=== PATIENT | female | born 1980 | race Caucasian/White ===

== ENCOUNTER 2018-08-09 15:17 | Inpatient (IN) | payer BC ==
[~2018-08-09] VITALS: Ht 165.1 cm; Wt 81.6 kg
[2018-08-13] MEDS ORDERED: METOCLOPRAMIDE 10 MG/2 ML SDV IVP PRN (22:30)
[2018-08-13] MEDS ORDERED: FAMOTIDINE(*) 20MG/50ML PREMIX 50 ML IVPB PRN (22:30)
[2018-08-13] MEDS ORDERED: fentaNYL CITR 100 MCG/2 ML AMP IVP PRN (22:30)
[2018-08-13] MEDS ORDERED: LIDOCAINE/SOD BICARB 8.4% SYR SC PRN (22:30)
[2018-08-13] MEDS ORDERED: LIDOCAINE 1% LOCAL 300 MG/30ML INJ PRN (22:30)
[2018-08-13] MEDS ORDERED: cefOXitin/DEX(*) 2GM/50ML PREM 50 ML IVPB PRN (22:30)
[2018-08-13 23:00] VITALS: BP 142/91; Ht 165.1 cm; Wt 81.6 kg
[2018-08-13 23:09] LABS: PLATELET COUNT, AUTOMATED 273 K/uL (150-450)
[2018-08-13] MEDS ORDERED: LIDOCAINE/PF 2% 200MG/10ML AMP 200 MG/10 ML AMPUL EPI PRN (23:40)
[2018-08-13] MEDS ORDERED: EPIDURAL KEYS XX PRN (23:40)
[2018-08-13] MEDS ORDERED: BUPIVACAINE 0.25% MPF INJ EPI PRN (23:40)
[2018-08-13] MEDS ORDERED: FENTANYL/ROPIVACAINE 100 ML BAG EPI PRN (23:40)
[2018-08-13] MEDS ORDERED: ONDANSETRON 4 MG/2 ML VIAL IVP PRN (23:40)
[2018-08-13] MEDS ORDERED: fentaNYL CITR 100 MCG/2 ML AMP IT PRN (23:40)
[2018-08-13] MEDS ORDERED: BUPIVACAINE 0.5% INJ 30ML VIAL EPI PRN (23:40)
[2018-08-13] MEDS ORDERED: LIDO/EPI 2% MPF 1:200,000 20ML EPI PRN (23:40)
[2018-08-13] MEDS ORDERED: CALCIUM CARBONATE 500 MG CHEW PO PRN (23:45)
[2018-08-13] MEDS ORDERED: DOCO100C2 PO (23:45)
[2018-08-13] MEDS ORDERED: PREN-127 PO (23:45)
[2018-08-13] MEDS ORDERED: FAMO20TA28 PO (23:45)
[2018-08-13] MEDS ORDERED: ACETAMINOPHEN 500 MG TAB PO PRN (23:45)
[2018-08-14] VITALS (17 sets, daily range): BP systolic 121–143; BP diastolic 70–97
[2018-08-14] MEDS: LR(*) 1000 ML BAG 1,000 ML IV SCH ×4 (00:32→09:30)
[2018-08-14] MEDS: OXYTOCIN 30 UNIT/D5LR 500 ML 500 ML IV PRN (07:12)
--- NOTE | 2018-08-14 07:26 | History & Physical ---
History of Present Illness Age of Patient: 38 : 1 Para or TPAL: 0 EDC per LMP: Aug 16, 2018 Estimated Gestational Age: 39.5 Chief Complaint labor History of Present Illness Presents for labor symptoms, contractions all day and from night before. This worsened gradually as day progressed while pt at work. has been unc omplicated to date. Mother is AMA and materni-21 was negative and male. Pt is healthy and no issues. Presents at 5 cm. As night has progressed, has changed to 9 cm by approximately 5 am. Epidural was placed at about 130. Reactive changes noted with this baby through the night. A light prolonged deceleration noted at epidural placement. Episodes of late decelerations that was positional and resolve with reposition or fluid bolus. Currently early decelerations noted and IUPC placed. History Patient's Blood Type: A Positive Rubella Status: Immune Group B Strep Screen: Negative Allergies: Coded Allergies: No Known Drug Allergies (Unverified , 08/13/18) Med Rec Home Meds Reported Medications Docosahexanoic Acid (DHA) 100 Mg Capsule, 100 MG PO, CAPSULE 08/13/18 Vits W-Ca,Fe,Fa(<1MG) ( VITAMINS) 1 Each Tablet, 1 EACH PO DAILY, TAB 08/13/18 Famotidine (PEPCID) 20 Mg Tablet, 20 MG PO QDAY, #10 TAB 08/13/18 Review of Systems All Systems Reviewed/Normal: Yes, Except as Noted Exam General Exam Vital Signs Vital Signs Date Time Temp Pulse Resp B/P (MAP) Pulse Ox O2 Delivery O2 Flow Rate FiO2 08/13/18 23:00 97.8 78 18 142/91 (108) 96 Room Air General Apperance: Alert/Awake/No Acute Distress Neuro: No Gross deficits Cardiovascular: Regular Rate and Rhythm Respiratory: No Respiratory Distress Abdomen: Soft, Non-Tender, Non-Distended, Gravid - Non-Tender Extremities: No Cyanosis,Clubbing or Edema Integumentary: Skin Intact without Lesions or Rash Psychological: Alert & Oriented X3, Appropriate Mood & Affect Vaginal Discharge/Fluid?: Green Tinged Fluid, Large Amount Cervical Dialation: 9 Cervical Effacement (%): 100 Cervical Consistency: Soft Cervical Position: Anterior Station: +1 Presentation: Vertex Uterine Contractions(Q min): 4 Uterine Contraction Strength: Moderate Fetus Heart Tone Variabilty: Moderate FHT Accelerations: 10X10 FHT Decelerations: Early FHT Category: I Medical Decision Making Data Points Result Diagram: 08/13/18 2779 VTE Prophylasis: Adult Deep Vein Thrombosis/Pulmonary: No Pharmacological Contraindicati: Pt at Low Risk for VTE Mechanical Contraindications: Pt at Low Risk for VTE Assessment and Plan Problems: (1) Thin meconium stained amniotic fluid Assessment & Plan: Parents informed of meconium stained fluid and potential implications. IUPC placed to assist with augmenting labor contractions. Currently early decelerations noted and will have to see how progresses with Pitocin augmentation. Expecting still. (2) 39 weeks gestation of (3) Normal labor RAFAT BRUNER MD Aug 14, 2018 07:26
[2018-08-14] MEDS ORDERED: NS(*) 0.9% 500 ML BAG 500 ML ONE (15:01)
[2018-08-14] MEDS ORDERED: OXYTOCIN 10 UNIT/ML SDV ONE (15:30)
[2018-08-14] MEDS ORDERED: ONDANSETRON 4 MG/2 ML VIAL ONE (15:30)
[2018-08-14] MEDS ORDERED: KETOROLAC 30 MG/ML VIAL ONE (15:31)
[2018-08-14] MEDS ORDERED: EPINEPHrine HCL 1 MG/ML AMP ONE (15:31)
[2018-08-14] MEDS ORDERED: LR(*) 1000 ML BAG 1,000 ML IV SCH (15:33)
[2018-08-14] MEDS ORDERED: FAMOTIDINE 20 MG/50 ML PREMIX IVPB ONE (15:35)
[2018-08-14] MEDS ORDERED: CITRIC ACID/SOD CITRATE 30 ML PO ONE (15:35)
[2018-08-14] MEDS ORDERED: cefOXitin/DEX(*) 2GM/50ML PREM 50 ML IVPB ONE (15:35)
[2018-08-14] MEDS ORDERED: OXYTOCIN 30 UNIT/D5LR 500 ML 500 ML IV PRN (15:43)
--- NOTE | 2018-08-14 15:43 | Labor Progress Note ---
Labor Subjective Progress Notes Subjective Has been in a labor dystocia for some time. Progressed regularly to 9 cm/0 station and then stalled. She has had interventions including IUPC monitoring and Pitocin augmentation to adequate MVUs without resolution. Suspecting ROP on exam. Vaginal Discharge/Fluid: Bloody Show Labor Objective Vital Signs Vital Signs Date Time Temp Pulse Resp B/P (MAP) Pulse Ox O2 Delivery O2 Flow Rate FiO2 08/14/18 12:10 100.2 08/13/18 23:00 78 18 142/91 (108) 96 Room Air Vaginal Discharge/Fluid?: Green Tinged Fluid Cervical Dialation: 9 Cervical Effacement (%): 100 Station: 0 Presentation: Vertex Fetus Heart Tone Variabilty: Moderate FHT Accelerations: 15X15 FHT Decelerations: Variable FHT Category: I Other Result Diagram: 08/13/18 4714 Assessment and Plan Problems: (1) Thin meconium stained amniotic fluid Assessment & Plan: will have PEDs present for delivery (2) 39 weeks gestation of (3) Normal labor (4) Arrest of descent, delivered, current hospitalization (5) Failure to progress in labor Assessment & Plan: Reviewed the situation and in fact, reviewed this at 1300 today. It appears we are at an unresolvable situation with arrest of descent and dilation, stuck at 9cm. It feels like it may be ROP. Reviewed R/B/A to and consent obtained. RAFAT BRUNER MD Aug 14, 2018 15:43
[2018-08-14] MEDS ORDERED: LANOLIN OINT 7 GM TUBE TP PRN (15:45)
[2018-08-14] MEDS ORDERED: ONDANSETRON 4 MG/2 ML VIAL IV PRN (15:45)
[2018-08-14] MEDS ORDERED: ZOLPIDEM TARTRATE 5 MG TAB PO PRN (15:45)
[2018-08-14] MEDS ORDERED: PROMETHAZINE 25 MG/ML 1 ML AMP IVP PRN (15:45)
[2018-08-14] MEDS ORDERED: SIMETHICONE 80 MG CHEW CHEW PRN (15:45)
[2018-08-14] MEDS ORDERED: LIDOCAINE 1%MDV(*)200 MG/20 ML 1 ML ONE (16:01)
[2018-08-14] MEDS ORDERED: BUPIVACAINE 0.5% INJ 30ML VIAL ONE (16:23)
[2018-08-14] MEDS ORDERED: MORPHINE PF 5 MG/10 ML AMP ONE (16:27)
[2018-08-14] MEDS ORDERED: fentaNYL CITR 100 MCG/2 ML AMP ONE (16:43)
--- NOTE | 2018-08-14 17:24 | Post Operative Note ---
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
[2018-08-14] MEDS: DOCUSATE CALCIUM 240 MG CAP PO SCH (20:33)
[2018-08-14] MEDS: FAMOTIDINE 20 MG TAB PO SCH (20:33)
[2018-08-14] MEDS: DLR(*) 1000 ML BAG 1,000 ML IV PRN (21:17)
[2018-08-14] MEDS: KETOROLAC 30 MG/ML VIAL IVP SCH (21:20)
[2018-08-14] MEDS ORDERED: BENZOCAINE 20% 60 ML BTL TP PRN (23:15)
[2018-08-14] MEDS ORDERED: GLYCERIN/WITCH HAZEL LEAF 1 PK TP PRN (23:15)
[2018-08-15] VITALS (8 sets, daily range): BP systolic 108–130; BP diastolic 65–80
[2018-08-15] MEDS: DLR(*) 1000 ML BAG 1,000 ML IV PRN (03:16)
[2018-08-15] MEDS: KETOROLAC 30 MG/ML VIAL IVP SCH ×2 (03:19→10:12)
--- NOTE | 2018-08-15 06:11 | Anesthesia OB Pre-Anes Eval ---
History of Present Illness Anesthesia Start Date: Aug 14, 2018 Anesthesia Start Time: 00:43 OB Anesthesia Diagnosis: spontaneous labor EDC: Aug 16, 2018 : 1 Para: 0 Pain Ratin Result Diagram: 08/13/18 2304 Height (Inches): 65.00 Weight (Pounds): 180 BMI Calculated: 29.95 Past Medical History Medical History: no pertinent history Surgical History: noncontributory Previous Anesthesia: general Attended Childbirth Classes?: Yes, Attended [employer] Lecture (yes) Hx Anesthesia Reactions: No Hx Family Anesthesia Reaction: No Home Meds Reported Medications Docosahexanoic Acid (DHA) 100 Mg Capsule, 100 MG PO, CAPSULE 08/13/18 Vits W-Ca,Fe,Fa(<1MG) ( VITAMINS) 1 Each Tablet, 1 EACH PO DAILY, TAB 08/13/18 Famotidine (PEPCID) 20 Mg Tablet, 20 MG PO QDAY, #10 TAB 08/13/18 Allergies: Coded Allergies: No Known Drug Allergies (Unverified , 08/13/18) Anesthesia OB ROS Airway Class: l GI ROS: clear liquids, ice chips Last Solids Date: Aug 13, 2018 Last Solids Time: 20:30 Musculoskeletal ROS: low back pain, low back injury ASA Classification: 2 Assessment and Plan Anesthesia Plan: CSE Anesthesia Stop Day: Aug 14, 2018 Anesthesia Stop Time: 17:33 Epidural Catheter Removal: Removed Catheter Intact (In OR following C- Section.), Yes, Removed by: (Lambert Arauz CRNA) Removal Date: Aug 14, 2018 Removal Time: 17:25 TITA ARAUZ CRNA Aug 14, 2018 01:52
--- NOTE | 2018-08-15 06:13 | Procedure Note ---
Anesthetic Placement Note Anesthesia Plan: CSE Permit for Anesthesia Signed: Yes Anesthesia Technique: Patient Sitting Anesthesia Prep: Betadine Interspace: L 3-4 Local Anesthetic: 1% Lidocaine, 25 Gauge Needle Amount Local - cc's: 3 Anesthesia Needle: 17g Touhy/Schliff Anesthesia Attempts: 2 (First attempt L4-5 unsuccessful.) Loss of Resistance: Normal Saline Depth of ALESSANDRA (cm): 5 Intrathecal Needle: 27 Gauge Pencan Cerebral Spinal Fluid: Yes, Clear Catheter Insertion (cm): 6 Catheter Type: Shaw - Spring Wound Epidural Dressing: Tegaderm, Tape, Adhesive [place] Anesthesia Tray: Lot Number ([id number]), Expiration Date (2019-08-13), Reference Number ([id number]) Comment: 1545 LEB converted to surgical epidural for (Failure to progress). See chart. Anesthesia Medications: Intrathecal Dose: mcg Fentanyl (25), mg Marcaine MPF (2.5), Time (0102) Epidural Test Dose: 1.5 Lido/Epi (1:200,000), Dose - mL (3), Time (0105), Neg ative (No symptoms IT or IV injection.) Epidural Loading Dose: 0.2% Ropivicaine, With Fentanyl 2mcg/ml, Dose - ml (10), Time (0113) Epidural Infusion: 0.2% Ropivicaine, With Fentanyl 2mcg/ml, Start Time: (0125) Epidural Pump Setting: Bolus Dose - mL (4), Lockout - Minutes (15), Maintenance Rate - mL/hr (10), Maximum per Hour - mL (26) Complications: None Comment: Good analgesia with IT medication, minimal motor block, R=L. Will assess epidural effectiveness when spinal dissipates. TITA ARAUZ CRNA Aug 14, 2018 02:01
[2018-08-15 06:31] LABS: PLATELET COUNT, AUTOMATED 190 K/uL (150-450)
--- NOTE | 2018-08-15 08:12 | KLINGLER C-SECTION ---
EVENT DATE: August 14, 2018 SURGEON: Nakul Melissa MD ANESTHESIOLOGIST: [*] ANESTHESIA: Epidural. PREOPERATIVE DIAGNOSES 1. Term intrauterine at 39 weeks. 2. Arrest of dilation and descent. 3. Failure to progress into labor. POSTOPERATIVE DIAGNOSES 1. Term intrauterine at 39 weeks. 2. Arrest of dilation and descent. 3. Failure to progress into labor. 4. Cephalopelvic disproportion with asynclitic presentation. PROCEDURES PERFORMED Primary low transverse section via Pfannenstiel skin incision. ESTIMATED BLOOD LOSS 1000 mL. FINDINGS Male , cephalic. Oblique presentation with an occiput anterior but asynclitic towards the right side. Normal appearing tubes and ovaries. Narrow pelvis. The 's face had significant compressive affect with flattened nose secondary to the compression in the pelvis. PROCEDURE IN DETAIL The patient was brought to the operating room with a working IV and an epidural in place. She was placed in the dorsal supine position on the operating table with a leftward tilt and prepped and draped in the usual sterile fashion. Using a knife, a Pfannenstiel skin incision was made and carried through to the underlying rectus fascia. This was nicked in the midline and extended laterally. The rectus fascia was dissected off the underlying rectus muscles using sharp dissection and the rectus muscles were in the midline. The peritoneum was entered sharpy and extended superiorly and inferiorly, taking care to avoid injury to the underlying bladder. The bladder blade was inserted. The vesicouterine peritoneum was tented and entered sharply and extended laterally. Bladder flap was created digitally. The bladder blade was reinserted here, exposing the lower uterine segment of the uterus. A low transverse incision was made with the scalpel and carried through to the intraamniotic space. It was extended with blunt lateral traction and was inserted. The 's head was found at an oblique angle, occiput anterior and asynclitic towards the right side. It was elevated to the incision. Fundal pressure was applied and the 's head delivered atraumatically. The face and nose were immediately noted to be smashed and compressed due to compression of the pelvis. There was significant caput formed on the 's head towards the occiput but right lateral onto the parietal bone, accounting for the arrest of descent and dilation to 9 cm. Mouth and nose were bulb suctioned and the remainder of the infant delivered without difficulty. The was vigorously stimulated and a good cry, tone and movement was noted. The cord was clamped and cut and the infant was passed to the awaiting resuscitation team. A cord sample was obtained. The placenta was delivered manually. The uterus was exteriorized and cleared of clots and debris. The uterus was then repaired with #1 Monocryl in a running locking stitch and imbricated with the same stitch for two-layer closure. There was excellent hemostasis upon completion. The uterus had firmed up after infusion of Pitocin IV and uterine massage. The uterus was returned to the abdomen and bilateral pelvic gutters were irrigated, swept clear of clots and debris. The parietal peritoneum was then sutured using 3-0 Vicryl in a running nonlocking stitch. Rectus muscles were reapproximated in the midline with the same stitch. A few capillary bleeders were cauterized while the rectus fascia was repaired using an 0 Vicryl in a running nonlocking stitch. Subcuticular space was irrigated and swept clean of clots and debris and cautery was applied for hemostasis. The space was closed with a 3-0 Vicryl Plus in a running nonlocking stitch and skin incision was repaired with 4-0 Monocryl simple subdermal and covered with Dermabond skin adhesive. She tolerated the procedure well. Sponge, lap, needle and instrument counts were correct x3. She was taken to recovery in stable condition. JACOB
--- NOTE | 2018-08-15 08:27 | Anesthesia Post Eval Note ---
Anesthesia Post Eval Note Stabil, afebrile. Pt able to participate in Eval: Yes Cardiovascular Status: Satisfactory Respiratory Status: Satisfactory Pain Managment: Satisfactory PO Nausea/Vomiting: Satisfactory Temperature Management: Satisfactory Mental Status: Satisfactory, Alert, Oriented X3 Post-Op Hydration Status: Satisfactory, Tolerating PO Well Anesthesia Type: CSE Anesthesia Tolerance: S/P CSE for labor. Pt eventually had to have failure to progress . LEB converted to surgical epidural which was supplemented with local anesthesia administered by surgeon before incision. She developed discomfort in surgical area during case, epidural was further dosed and discomfort eventually improved. She denies nausea or itching, received Duramorph via epidural at end of case before catheter was removed. Pain control is adequate. She is able to sit up in bed and stand at bedside without symptoms of PDPH. TITA ARAUZ DRUG ABUSE COUNSELOR Aug 15, 2018 08:27
--- NOTE | 2018-08-15 08:54 | OB/GYN Progress Note ---
OB Subjective Progress Notes Subjective Pain tolerated well. Little bleeding. Has been up at bedside well. Good UO GI: NEG Nausea : Voiding Well Pain: Mild OB Objective Physical Exam Vital Signs Date Time Temp Pulse Resp B/P (MAP) Pulse Ox O2 Delivery O2 Flow Rate FiO2 08/15/18 05:00 78 15 96 Nasal Cannula 1.0 08/15/18 02:05 119/73 (88) 08/15/18 02:05 98.4 Intake and Output 08/15/18 07:00 Intake Total 9220 ml Output Total 7150 ml Balance 2070 ml Intake Oral 670 ml IV Total 6250 ml Other 2300 ml Output Urine Total 6150 ml Estimated Blood Loss 1000 ml General Appearance: Alert/Awake/No Acute Distress Neurological: No Gross deficits Cardiovascular: Normal Rhythm & Peripheral Pulses Respiratory: No Respiratory Distress Abdomen: Soft, Non-Tender, Non-Distended, Fundus Firm, Non-Tender Incision: Clean, Dry, Intact, Dermabond Extremities: No Cyanosis,Clubbing or Edema Integumentary: Skin Intact without Lesions or Rash Psychological: Alert & Oriented X3, Appropriate Mood & Affect Result Diagram: 08/15/18 0550 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
[2018-08-15] MEDS ORDERED: INFLUENZA VIRUS VAC 0.5ML SYR IM ONLY ONE (09:00)
[2018-08-15] MEDS ORDERED: DIPHTH/TETANUS/ACEL. PERTUSSIS IM ONLY ONE (09:00)
[2018-08-15] MEDS ORDERED: MEASLES,MUMP,RUBELLA VAC 0.5ML SUBQ ONE (09:00)
[2018-08-15] MEDS: DOCUSATE CALCIUM 240 MG CAP PO SCH ×2 (09:44→21:04)
[2018-08-15] MEDS: FAMOTIDINE 20 MG TAB PO SCH ×2 (09:44→21:04)
[2018-08-15] MEDS: IBUPROFEN 800 MG TAB PO SCH (17:42)
[2018-08-16] MEDS: IBUPROFEN 800 MG TAB PO SCH ×3 (01:55→18:43)
[2018-08-16 03:10] VITALS: BP 128/76
[2018-08-16 07:45] VITALS: BP 134/91
[2018-08-16] MEDS: DOCUSATE CALCIUM 240 MG CAP PO SCH ×2 (09:27→20:22)
[2018-08-16] MEDS: FAMOTIDINE 20 MG TAB PO SCH ×2 (09:27→20:22)
--- NOTE | 2018-08-16 11:14 | OB/GYN Progress Note ---
OB Subjective Progress Notes Subjective Doing well. Pain controlled and ambulating well. Voiding without difficulty. Baby having some issues with bili and question of whether it has a genetic issue. Pt worried about that. GI: NEG Nausea : Voiding Well Pain: Mild OB Objective Physical Exam Vital Signs Date Time Temp Pulse Resp B/P (MAP) Pulse Ox O2 Delivery O2 Flow Rate FiO2 08/16/18 03:10 98.5 77 16 128/76 (93) 93 Room Air 08/15/18 08:00 1.0 Intake and Output 08/16/18 07:00 Intake Total 2410 ml Output Total 4500 ml Balance -2090 ml Intake Oral 1660 ml IV Total 750 ml Output Urine Total 4500 ml # Voids 1 General Appearance: Alert/Awake/No Acute Distress Neurological: No Gross deficits Cardiovascular: Normal Rhythm & Peripheral Pulses Respiratory: No Respiratory Distress Abdomen: Soft, Non-Tender, Non-Distended, Fundus Firm, Non-Tender Incision: Clean, Dry, Intact, Dermabond Extremities: No Cyanosis,Clubbing or Edema Integumentary: Skin Intact without Lesions or Rash Psychological: Alert & Oriented X3, Appropriate Mood & Affect Result Diagram: 08/15/18 0550 Assessment and Plan Problems: (1) Thin meconium stained amniotic fluid (2) 39 weeks gestation of (3) Normal labor (4) Arrest of descent, delivered, current hospitalization (5) Failure to progress in labor (6) Other specified aftercare following surgery Assessment & Plan: routine care today. Expecting discharge tomorrow either to room in or to home depending on baby. (7) care and examination immediately after delivery RAFAT BRUNER MD Aug 16, 2018 11:14
[2018-08-16 11:15] VITALS: BP 127/84
[2018-08-16 16:43] VITALS: BP 129/70
[2018-08-16 19:30] VITALS: BP 138/80
[2018-08-16 23:30] VITALS: BP 141/97
[2018-08-17] MEDS: IBUPROFEN 800 MG TAB PO SCH ×2 (01:38→10:14)
[2018-08-17 03:35] VITALS: BP 114/71
[2018-08-17 07:35] VITALS: BP 151/86
[2018-08-17] MEDS: DOCUSATE CALCIUM 240 MG CAP PO SCH (08:38)
[2018-08-17] MEDS: FAMOTIDINE 20 MG TAB PO SCH (08:38)
[2018-08-17] MEDS: ACETAMINOPHEN 325 MG TAB PO PRN ×2 (08:38→12:18)
[2018-08-17 09:29] LABS: PLATELET COUNT, AUTOMATED 287 K/uL (150-450)
[2018-08-17 12:12] VITALS: BP 144/87
[2018-08-17] MEDS ORDERED: OXYC-865 PO (12:27)
[2018-08-17] MEDS ORDERED: IBUP800T37 PO (12:27)
--- NOTE | 2018-08-17 12:31 | OB/GYN Discharge Summary ---
Discharge Summary Reason for Hosp/Final Diag: (1) Thin meconium stained amniotic fluid (2) 39 weeks gestation of (3) Normal labor (4) Arrest of descent, delivered, current hospitalization (5) Failure to progress in labor (6) Other specified aftercare following surgery (7) care and examination immediately after delivery [place] Vital Signs Vital Signs Date Time Temp Pulse Resp B/P (MAP) Pulse Ox O2 Delivery O2 Flow Rate FiO2 08/17/18 12:12 98.3 71 18 144/87 (106) 95 Room Air 08/15/18 08:00 1.0 Weight (Pounds): 180 Result Diagram: 08/17/1892208/17/18922 Condition: Improved Discharge: Home, Self Retirement Meds Active Scripts Oxycodone Hcl/Acetaminophen (PERCOCET 5-325 MG TABLET) 1 Each Tablet, 1 EACH PO Q4-6H PRN for PAIN, #20 TAB 0 Refills TAKE 1 TABLET NEEDED FOR PAIN - NO CLOSER THAN EVERY 4-6 HOURS. Prov:MAGI MCCLELLAND 08/17/18 Ibuprofen (IBUPROFEN) 800 Mg Tablet, 1 TAB PO Q8H, #30 TAB 0 Refills Take with food every 8 hours. Prov:MAGI MCCLELLAND 08/17/18 Reported Medications Docosahexanoic Acid (DHA) 100 Mg Capsule, 100 MG PO, CAPSULE 08/13/18 Vits W-Ca,Fe,Fa(<1MG) ( VITAMINS) 1 Each Tablet, 1 EACH PO DAILY, TAB 08/13/18 Famotidine (PEPCID) 20 Mg Tablet, 20 MG PO QDAY, #10 TAB 08/13/18 [facility] [phone], Dr. Melissa [phone] Follow up in: 2 wks PO Discharge Diet: As Tolerates Discharge Activity: As Tolerates, Pelvic Rest Special Instructions: No driving on narcotic pain medication. F/u for blood pressure check early next week. MAGI MCCLELLAND Aug 17, 2018 12:31
--- NOTE | 2018-08-17 12:37 | OB/GYN Progress Note ---
OB Subjective Progress Notes Subjective 38 yo female post day #3 s/p . Increased BP this morning, mild headache and some edema in the legs and feet, labs done and within range. Tolerating PO, ambulating well, voiding well. Scant vaginal bleeding. GI: POS Flatus; NEG Nausea, NEG Vomiting : Voiding Well, Vaginal Bleeding, Scant Pain: Moderate, Tolerating PO Pain Meds Neurological: Headache (mild) OB Objective Physical Exam Vital Signs Date Time Temp Pulse Resp B/P (MAP) Pulse Ox O2 Delivery O2 Flow Rate FiO2 08/17/18 12:12 98.3 71 18 144/87 (106) 95 Room Air 08/15/18 08:00 1.0 Intake and Output 08/17/18 06:59 Intake Total 2130 ml Balance 2130 ml Intake Oral 2130 ml # Voids 2 General Appearance: Alert/Awake/No Acute Distress Neurological: No Gross deficits Cardiovascular: Normal Rhythm & Peripheral Pulses Respiratory: No Respiratory Distress, Clear to Auscultation Abdomen: Fundus Firm, Non-Tender Incision: Clean, Dry, Intact, Dermabond Extremities: Edema (1+ edema of bilat lower legs); No No Cyanosis,Clubbing or Edema Integumentary: Skin Intact without Lesions or Rash Psychological: Alert & Oriented X3, Appropriate Mood & Affect Result Diagram: 08/17/1892208/17/18922 Assessment and Plan 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 Follow-up for incision check in 2 weeks.. (7) care and examination immediately after delivery MAGI MCCLELLAND Aug 17, 2018 12:37
== END 2018-08-17 15:20 | disposition home or self-care (01) | DRG 788 ==
LOC: OB 15:17 → UNDOADMIN 15:17 → OB 08-13 22:29
PROVIDERS: ADMIT Obstetrics & Gynecology; ATTEND Obstetrics & Gynecology
PROC: 10H07YZ Insertion of Other Device into Products of Conception, Via Natural or Artificial Opening (ICD-10-PCS; 2018-08-14)
PROC: 4A1H74Z Monitoring of Products of Conception, Cardiac Electrical Activity, Via Natural or Artificial Opening (ICD-10-PCS; 2018-08-14)
PROC: 10D00Z1 Extraction of Products of Conception, Low, Open Approach (ICD-10-PCS; principal; 2018-08-14 16:06)
DX: O64.0XX0 Obstructed labor due to incomplete rotation of fetal head, not applicable or unspecified (principal); O65.8 Obstructed labor due to other maternal pelvic abnormalities; O62.1 Secondary uterine inertia; O77.0 Labor and delivery complicated by meconium in amniotic fluid; O76 Abnormality in fetal heart rate and rhythm complicating labor and delivery; Z3A.39 39 weeks gestation of pregnancy; Z37.0 Single live birth
CPT/HCPCS: 36415; 81001; 82040; 82247; 82310; 82374; 82435; 82565; 82947; 83615; 84075; 84132; 84155; 84295; 84450; 84460; 84520; 84550; 85014; 85018; 85025; 86703; 86850; 86900; 86901; J0171; J1885; J2001; J2270; J2405; J2590; J2765; J3010; J3490; J7120; S0020

== ENCOUNTER 2019-03-19 15:08 | Observation (INO) | payer BC ==
[~2019-03-19] VITALS: Ht 165.1 cm; Wt 72.6 kg
[~2019-03-19 15:08] MED LIST: DOCO100C2 PO; FAMO20TA28 PO; IBUP800T37 PO; OXYC-865 PO; PREN-127 PO
[2019-03-19] MEDS ORDERED: NS(*) 0.9% 1000 ML BAG 1,000 ML IV ONE (15:24)
[2019-03-19] MEDS ORDERED: ONDANSETRON 4 MG/2 ML VIAL IVP ONE (15:25)
[2019-03-19 15:38] LABS: PLATELET COUNT, AUTOMATED 411 K/uL (150-450)
[2019-03-19] MEDS ORDERED: NS(*) 0.9% 1000 ML BAG 1,000 ML ONE (16:31)
[2019-03-19] MEDS ORDERED: ONDANSETRON 4 MG/2 ML VIAL ONE ×2 (16:31→19:59)
--- NOTE | 2019-03-19 16:32 | RADIOLOGY IMAGING REPORT ---
FACILITY: [facility] - [place] PATIENT NAME: Kassy Silveira : 1980 MR: [id number] V: [id number] EXAM DATE: ORDERING PHYSICIAN: NEVILLE KOENIG TECHNOLOGIST: Location: [facility] [place] Patient: Kassy Silveira : 1980 Visit/Account:[id number] Date of Sevice: 03/19/2019 EXAMINATION: CT abdomen and pelvis with contrast COMPARISON: None. HISTORY: abdominal pain PROCEDURE: Multiplanar contrast enhanced CT of the abdomen and pelvis with 75 mL intravenous Isovue 3 70. One of the following dose optimization techniques was utilized in the performance of this exam: A utomated exposure control; adjustment of the mA and/or kV according to the patient's size; or use of an iterative reconstruction technique. Specific details can be referenced in the facility's radiolo gy CT exam operational policy. FINDINGS: Visualized thorax: Negative. Liver: Negative. Gallbladder and biliary system: Negative Spleen: Negative. Pancreas: Negative. Adrenal glands: Negative. Kidneys and bladder: Negative. Vessels: Negative. Bowel and mesentery: 2 calcified appendicoliths within the mid appendix, the largest of which measure s 1.2 x 0.8 x 0.7 cm. Distal to this the appendix is dilated to 1.6 cm and there is marked periappend iceal inflammation as well as a trace amount of fluid in the right paracolic gutter. The appendiceal wall is indistinct adjacent to the appendicolith and perforation cannot be excluded. No organized flu id collection or extraluminal gas is identified at this time. Stomach is within normal limits. No small bowel inflammation or obstruction. Small to moderate amount of stool in the colon. No colonic inflammation. Pelvic organs: Negative. Lymph nodes: There are a few mildly prominent right lower quadrant lymph nodes which are nonspecific but favored to be reactive. Free air/free fluid: Trace fluid in the right paracolic gutter as noted above. No other abdominopelvi c gas or fluid collection. Musculoskeletal: Tiny fat-containing umbilical hernia. Osseous structures are intact. IMPRESSION: Acute appendicitis with possible perforation. There is a trace amount of fluid in the right paracolic gutter but no evidence of an organized abscess or pneumoperitoneum at this time. Surgical consultati on is required. Results were discussed with NEVILLE KOENIG at 03/19/2019 4:24 PM. Report Dictated By: Dev Wooten MD at 03/19/2019 4:15 PM Report E-Signed By: Dev Wooten MD at 03/19/2019 4:26 PM WSN:[id number]
--- NOTE | 2019-03-19 16:42 | ER Report ---
History and Physical Time Seen By MD: 15:30 Hx. of Stated Complaint: ABDOMINAL PAIN SINCE YESTERDAY HPI/ROS Worsening abdominal pain since yesterday. Feels like "gas pains." No dysuria or hematuria. No flank pain. No vaginal discharge. No fever/chills. No chest pain or SOB. Nausea, but no vomiting. Pain worse with movement. Remainder of the 14 system rev: Yes Allergies: Coded Allergies: No Known Drug Allergies (Unverified , 08/13/18) Home Meds Active Scripts Oxycodone Hcl/Acetaminophen (PERCOCET 5-325 MG TABLET) 1 Each Tablet, 1 EACH PO Q4-6H PRN for PAIN, #20 TAB 0 Refills TAKE 1 TABLET NEEDED FOR PAIN - NO CLOSER THAN EVERY 4-6 HOURS. Prov:MAGI MCCLELLAND 08/17/18 Ibuprofen (IBUPROFEN) 800 Mg Tablet, 1 TAB PO Q8H, #30 TAB 0 Refills Take with food every 8 hours. Prov:MAGI MCCLELLAND 08/17/18 Reported Medications Docosahexanoic Acid (DHA) 100 Mg Capsule, 100 MG PO, CAPSULE 08/13/18 Vits W-Ca,Fe,Fa(<1MG) ( VITAMINS) 1 Each Tablet, 1 EACH PO DAILY, TAB 08/13/18 Famotidine (PEPCID) 20 Mg Tablet, 20 MG PO QDAY, #10 TAB 08/13/18 Reviewed Nurses Notes: Yes Old Medical Records Reviewed: Yes Hx Smoking: No Smoking Status: Never Smoker Exposure to Second Hand Smoke?: No Constitutional Vital Sign - Last 24 Hours 03/19/19 15:28 Pulse 89 Resp 20 B/P (MAP) 122/76 Pulse Ox 95 O2 Delivery Room Air Physical Exam General Appearance: The patient is alert, has no immediate need for airway protection and no current signs of toxicity. Eyes: Pupils equal and round no injection. Respiratory: Chest is non tender, lungs are clear to auscultation. Cardiac: regular rate and rhythm Gastrointestinal: Abdomen is soft with TTP of the RLQ. Skin: No rashes or lesions. DIFFERENTIAL DIAGNOSIS: After history and physical exam differential diagnosis was considered for abdominal pain including but not limited to appendicitis, cholecystitis, gastritis and urinary tract infection. Medical Decision Making Data Points Result Diagram: 03/19/19 1519 03/19/19 1519 Laboratory Hematology Test 03/19/19 15:19 Red Blood Count 4.40 M/uL (4.17-5.56) Mean Corpuscular Volume 93.8 fL (80.0-96.0) Mean Corpuscular Hemoglobin 32.4 pg (26.0-33.0) Mean Corpuscular Hemoglobin Concent 34.6 g/dL (32.0-36.0) Red Cell Distribution Width 12.4 % (11.5-14.5) Mean Platelet Volume 8.4 fL (7.2-11.1) Neutrophils (%) (Auto) 84.6 % (39.4-72.5) Lymphocytes (%) (Auto) 7.3 % (17.6-49.6) Monocytes (%) (Auto) 7.4 % (4.1-12.4) Eosinophils (%) (Auto) 0.1 % (0.4-6.7) Basophils (%) (Auto) 0.6 % (0.3-1.4) Nucleated RBC Relative Count (auto) 0.1 /100WBC Neutrophils # (Auto) 15.2 K/uL (2.0-7.4) Lymphocytes # (Auto) 1.3 K/uL (1.3-3.6) Monocytes # (Auto) 1.3 K/uL (0.3-1.0) Eosinophils # (Auto) 0.0 K/uL (0.0-0.5) Basophils # (Auto) 0.1 K/uL (0.0-0.1) Nucleated RBC Absolute Count (auto) 0.02 K/uL Urine Color Yellow Urine Clarity Clear Urine pH 7.0 pH (4.8-9.5) Urine Specific [place] 1.016 Urine Protein Negative mg/dL (NEGATIVE) Urine Glucose (UA) Negative mg/dL (NEGATIVE) Urine Ketones Trace mg/dL (NEGATIVE) Urine Blood Negative (NEGATIVE) Urine Nitrite Negative (NEGATIVE) Urine Bilirubin Negative (NEGATIVE) Urine Urobilinogen Negative mg/dL (0.2-1.9) Urine Leukocyte Esterase Negative (NEGATIVE) Urine RBC None /HPF (0-2/HPF) Urine WBC <1 /HPF (0-5/HPF) Urine Squamous Epithelial Cells Few /LPF (</=FEW) Urine Bacteria Few /HPF (NONE-FEW) Urine Mucus None /HPF (NONE-FEW) Sodium Level 137 mmol/L (137-145) Potassium Level 3.9 mmol/L (3.5-5.0) Chloride Level 99 mmol/L (98-107) Carbon Dioxide Level 26 mmol/L (22-31) Blood Urea Nitrogen 9 mg/dl (7-18) Creatinine 0.80 mg/dl (0.52-1.04) Glomerular Filtration Rate Calc > 60.0 Random Glucose 104 mg/dl (75-110) Calcium Level 9.4 mg/dl (8.4-10.2) Total Bilirubin 2.0 mg/dl (0.2-1.3) Aspartate Amino Transf (AST/SGOT) 27 U/L (0-35) Alanine Aminotransferase (ALT/SGPT) 19 U/L (0-56) Alkaline Phosphatase 122 U/L (0-126) Total Protein 8.4 g/dl (6.3-8.2) Albumin 4.9 g/dl (3.5-5.0) Lipase 46 U/L (23-300) Human Chorionic Gonadotropin, Qual Negative (NEGATIVE) Chemistry Test 03/19/19 15:19 White Blood Count 17.9 k/uL (4.5-11.0) Red Blood Count 4.40 M/uL (4.17-5.56) Hemoglobin 14.3 g/dL (12.0-16.0) Hematocrit 41.3 % (34.0-47.0) Mean Corpuscular Volume 93.8 fL (80.0-96.0) Mean Corpuscular Hemoglobin 32.4 pg (26.0-33.0) Mean Corpuscular Hemoglobin Concent 34.6 g/dL (32.0-36.0) Red Cell Distribution Width 12.4 % (11.5-14.5) Platelet Count 411 K/uL (150-450) Mean Platelet Volume 8.4 fL (7.2-11.1) Neutrophils (%) (Auto) 84.6 % (39.4-72.5) Lymphocytes (%) (Auto) 7.3 % (17.6-49.6) Monocytes (%) (Auto) 7.4 % (4.1-12.4) Eosinophils (%) (Auto) 0.1 % (0.4-6.7) Basophils (%) (Auto) 0.6 % (0.3-1.4) Nucleated RBC Relative Count (auto) 0.1 /100WBC Neutrophils # (Auto) 15.2 K/uL (2.0-7.4) Lymphocytes # (Auto) 1.3 K/uL (1.3-3.6) Monocytes # (Auto) 1.3 K/uL (0.3-1.0) Eosinophils # (Auto) 0.0 K/uL (0.0-0.5) Basophils # (Auto) 0.1 K/uL (0.0-0.1) Nucleated RBC Absolute Count (auto) 0.02 K/uL Urine Color Yellow Urine Clarity Clear Urine pH 7.0 pH (4.8-9.5) Urine Specific [place] 1.016 Urine Protein Negative mg/dL (NEGATIVE) Urine Glucose (UA) Negative mg/dL (NEGATIVE) Urine Ketones Trace mg/dL (NEGATIVE) Urine Blood Negative (NEGATIVE) Urine Nitrite Negative (NEGATIVE) Urine Bilirubin Negative (NEGATIVE) Urine Urobilinogen Negative mg/dL (0.2-1.9) Urine Leukocyte Esterase Negative (NEGATIVE) Urine RBC None /HPF (0-2/HPF) Urine WBC <1 /HPF (0-5/HPF) Urine Squamous Epithelial Cells Few /LPF (</=FEW) Urine Bacteria Few /HPF (NONE-FEW) Urine Mucus None /HPF (NONE-FEW) Glomerular Filtration Rate Calc > 60.0 Calcium Level 9.4 mg/dl (8.4-10.2) Total Bilirubin 2.0 mg/dl (0.2-1.3) Aspartate Amino Transf (AST/SGOT) 27 U/L (0-35) Alanine Aminotransferase (ALT/SGPT) 19 U/L (0-56) Alkaline Phosphatase 122 U/L (0-126) Total Protein 8.4 g/dl (6.3-8.2) Albumin 4.9 g/dl (3.5-5.0) Lipase 46 U/L (23-300) Human Chorionic Gonadotropin, Qual Negative (NEGATIVE) Urinalysis Test 03/19/19 15:19 Urine Color Yellow Urine Clarity Clear Urine pH 7.0 pH (4.8-9.5) Urine Specific [place] 1.016 Urine Protein Negative mg/dL (NEGATIVE) Urine Glucose (UA) Negative mg/dL (NEGATIVE) Urine Ketones Trace mg/dL (NEGATIVE) Urine Blood Negative (NEGATIVE) Urine Nitrite Negative (NEGATIVE) Urine Bilirubin Negative (NEGATIVE) Urine Urobilinogen Negative mg/dL (0.2-1.9) Urine Leukocyte Esterase Negative (NEGATIVE) Urine RBC None /HPF (0-2/HPF) Urine WBC <1 /HPF (0-5/HPF) Urine Squamous Epithelial Cells Few /LPF (</=FEW) Urine Bacteria Few /HPF (NONE-FEW) Urine Mucus None /HPF (NONE-FEW) ED Course/Re-evaluation ED Course CT scan consistent with history and physical and finding of an acute appendicitis. Patient is stable. Given Zosyn. We will discuss case with Dr. Vasquez, and will admit to the OR for definitive care. Decision to Disposition Date: March 19, 2019 Decision to Disposition Time: 16:41 Depart Departure Latest Vital Signs Vital Signs Date Time Temp Pulse Resp B/P (MAP) Pulse Ox O2 Delivery O2 Flow Rate FiO2 03/19/19 15:28 89 20 122/76 95 Room Air Impression: Primary Impression: Acute appendicitis Condition: Improved Disposition: ADMIT FROM ER TO OR Problem Qualifiers Primary Impression: Acute appendicitis Acute appendicitis type: unspecified acute appendicitis type Qualified Codes: K35.80 - Unspecified acute appendicitis NEVILLE KOENIG MD March 19, 2019 16:42
[2019-03-19] MEDS ORDERED: FAMOTIDINE(*) 20MG/50ML PREMIX 50 ML IVPB ONE ×2 (16:45→16:48)
[2019-03-19] MEDS ORDERED: NORMOSOL R SOLN(*) 1000 ML BAG 1,000 ML IV ONE ×3 (16:45→20:14)
[2019-03-19] MEDS ORDERED: PIPERACILLIN/TAZO*3.375GM VIAL 3.375 GM in NS(*) 0.9% 100 ML MINI-BAG 100 ML IVPB ONE ×2 (16:45→17:00)
[2019-03-19] MEDS ORDERED: PIPERACILLIN/TAZO*3.375GM VIAL 3.375 GM ONE (16:58)
[2019-03-19] MEDS ORDERED: NS(*) 0.9% 100 ML BAG 100 ML ONE (16:59)
[2019-03-19] MEDS ORDERED: fentaNYL CITR 100 MCG/2 ML AMP ONE ×4 (17:08→21:00)
[2019-03-19] MEDS ORDERED: fentaNYL CITR 100 MCG/2 ML AMP IVP ONE ×2 (17:10→18:05)
[2019-03-19] MEDS ORDERED: ROPIVACAINE 0.5% 20 ML VIAL ONE (18:09)
--- NOTE | 2019-03-19 18:13 | Gen Surgery History & Physical ---
History of Present Illness Chief Complaint Abdominal pain History of Present Illness 38yo female presents to the ER with abdominal pain that started yesterday and has progressively worsened overnight. Subjective fevers/chills. No N/V, diarr hea or constipation. She came in to the ER and WBC found to be 17K and CT c/w appendicitis with fluid around appendix. Pt had C-sxn 7 months ago. No other surgeries. No medical problems, only takes MVI daily, NKDA. History Home Meds Active Scripts Oxycodone Hcl/Acetaminophen (PERCOCET 5-325 MG TABLET) 1 Each Tablet, 1 EACH PO Q4-6H PRN for PAIN, #20 TAB 0 Refills TAKE 1 TABLET NEEDED FOR PAIN - NO CLOSER THAN EVERY 4-6 HOURS. Prov:MAGI MCCLELLAND 08/17/18 Ibuprofen (IBUPROFEN) 800 Mg Tablet, 1 TAB PO Q8H, #30 TAB 0 Refills Take with food every 8 hours. Prov:MAGI MCCLELLAND 08/17/18 Reported Medications Docosahexanoic Acid (DHA) 100 Mg Capsule, 100 MG PO, CAPSULE 08/13/18 Vits W-Ca,Fe,Fa(<1MG) ( VITAMINS) 1 Each Tablet, 1 EACH PO DAILY, TAB 08/13/18 Famotidine (PEPCID) 20 Mg Tablet, 20 MG PO QDAY, #10 TAB 08/13/18 Allergies: Coded Allergies: No Known Drug Allergies (Unverified , 08/13/18) Review of Systems All Systems Reviewed/Normal: Yes, Except as Noted Gastrointestinal: Abdominal Pain Exam General Appearance: Alert, Awake, No Acute Distress, Afebrile Neuro: No Gross deficits Eyes: PERRLA GI: Other (Soft, RLQ TTP with focal RLQ peritoneal signs.) Extremities: Warm, Perfused Psych: Alert & Oriented X3, Appropriate Mood & Affect Medical Decision Making Data Points Result Diagram: 03/19/19 1519 03/19/19 1519 Assessment and Plan Problems: (1) Acute appendicitis Status: Acute Assessment & Plan: 03/19/19: Admit, IV fluids, IV abx, NPO, to OR for lap appy. I have explained the plan, including surgery, with her in great detail. I have explained the possibility of a more advanced appendicitis with perforation and/or abscess, gangrene, phlegmon, etc. If her appendicitis is more advanced, surgery may take longer and her hospital stay may take longer as well. I may leave a surgical drain in place. If a phlegmon is present, I may not try to remove the appendix and treat her with abx with delayed appendectomy in 6 weeks. She seems to understand this discussion and her questions have been answered. Pt would like to proceed with this plan including surgery. Condition Stable. Time Spent: < 30 min Venous Thromboembolism VTE Risk Physician Assess for VTE Risk: Yes Patient's VTE Risk: Low VTE Diagnostic Test 2 Days Prior to Admit: No Antithrombotics Is Pt On Any Antithrombotics?: No Problem Qualifiers (1) Acute appendicitis: Acute appendicitis type: unspecified acute appendicitis type Qualified Codes: K35.80 - Unspecified acute appendicitis MICHAEL SHARMA MD March 19, 2019 18:13
[2019-03-19] MEDS ORDERED: ROCURONIUM BROM 10 MG/ML 5 ML ONE (19:03)
[2019-03-19] MEDS ORDERED: SUCCINYLCHOL CHL 100MG/5ML SYR IVP ONE (19:03)
[2019-03-19] MEDS ORDERED: SUGAMMADEX SOD 200 MG/2 ML SDV ONE (19:53)
[2019-03-19] MEDS ORDERED: DEXAMETHASONE SOD PHOS 10MG/ML ONE (19:59)
[2019-03-19] MEDS ORDERED: PROPOFOL EMUL(*) 10MG/ML 20 ML 40 ML ONE (19:59)
[2019-03-19] MEDS ORDERED: NS(*) 0.9% 1000 ML BAG 1,000 ML IV PRN (20:09)
[2019-03-19] MEDS ORDERED: NALOXONE HCL 0.4 MG/ML VIAL IVP PRN (20:10)
[2019-03-19] MEDS ORDERED: FLUSH 10 ML SYR IVP PRN (20:10)
[2019-03-19] MEDS ORDERED: oxyCODON/ACET (*)5/325MG (CII) 1 TAB TAB PO PRN (20:10)
[2019-03-19] MEDS ORDERED: ONDANSETRON 4 MG/2 ML VIAL IVP PRN (20:10)
[2019-03-19] MEDS ORDERED: HYDROmorphone HCL 2 MG/ML SDV IVP PRN (20:10)
--- NOTE | 2019-03-19 20:26 | Post Operative Progress Note ---
Post Operative Progress Note Date: March 19, 2019 Time: 20:14 Surgeon: Garth Dictation number: [id number] Anesthesia: GETA by Dr. Ruvalcaba Pre-Op Diagnosis: Acute appendicitis Post-Op Diagnosis: Acute appendicitis with phlegmon Findings: Phlegmon Procedure(s): Lap appy Specimen Removed:(May be N/A): Appendix Complications: None Fluids: See anesthesia record Estimated Blood Loss: Minimal Date OP Note Dictated: March 19, 2019 Time OP Note Dictated: 20:15 MICHAEL SHARMA MD March 19, 2019 20:26
[2019-03-19] MEDS ORDERED: ACETAMINOPHEN(*)1000 MG/100 ML 100 ML IVPB ONE (21:01)
[2019-03-19 21:42] VITALS: BP 114/71
[2019-03-19] MEDS ORDERED: FAMOTIDINE 20 MG TAB ONE (22:20)
[2019-03-19] MEDS ORDERED: DOCUSATE SODIUM 100 MG CAP PO ONE (22:20)
[2019-03-19] MEDS: FAMOTIDINE 20 MG TAB PO SCH (22:22)
[2019-03-19] MEDS: DOCUSATE SODIUM 100 MG CAP PO SCH (22:22)
[2019-03-19 22:30] VITALS: BP 115/87
[2019-03-19 22:45] VITALS: BP 121/71
[2019-03-19] MEDS ORDERED: oxyCODON/ACET (*)5/325MG (CII) 1 TAB TAB ONE (23:20)
[2019-03-19 23:30] VITALS: BP 105/69
[2019-03-19 23:45] VITALS: BP 101/56
[2019-03-20] VITALS (13 sets, daily range): BP systolic 84–116; BP diastolic 50–77; Ht 165.1 cm; Wt 72.6 kg
[2019-03-20] MEDS: PIPERACILLIN/TAZO*3.375GM VIAL 3.375 GM in NS(*) 0.9% 100 ML MINI-BAG 100 ML IVPB SCH ×2 (00:21→06:04)
--- NOTE | 2019-03-20 04:53 | OPERATIVE REPORT 1 ---
EVENT DATE: March 19, 2019 SURGEON: Chris Liang MD ANESTHESIOLOGIST: Cesar Ruvalcaba MD ANESTHESIA: General endotracheal anesthesia. PREOPERATIVE DIAGNOSIS Acute appendicitis. POSTOPERATIVE DIAGNOSIS Acute appendicitis with phlegmon. PROCEDURE PERFORMED Laparoscopic appendectomy. COMPLICATIONS None. CONDITION Stable. BLOOD LOSS Minimal. FINDINGS This patient had an acute appendicitis, which was gathered together in a phlegmon with the cecum. Fortunately, the appendix was on the outside of the phlegmon, and I was able to peel it off with some effort to separate it so I could remove the appendix. SPECIMEN Appendix. INDICATIONS FOR PROCEDURE This is a 38-year-old female who presented to the emergency room with one day of abdominal pain which migrated to the right lower quadrant. Her white blood cell count was found to be 17,000. A CT scan was consistent with appendicitis with surrounding fluid. She was admitted and started on IV antibiotics and consented for a laparoscopic appendectomy. DESCRIPTION OF PROCEDURE The patient was brought to the operating room and placed upon the operating table. General endotracheal anesthesia was administered, and her abdomen was prepped and draped in a sterile fashion. A time-out was completed, and I injected the umbilical skin with 0.5% bupivacaine plain. Since she had a broad, shallow umbilicus, I made a vertical incision right at the base of the umbilicus and dissected through the dermis and into the subcutaneous tissues, identified the midline fascia, made a vertical incision in the midline fascia, grabbed the fascial edges with Isidoro clamps, bluntly entered the peritoneal cavity with a hemostat, and then placed two interrupted 0 Vicryl sutures transversely through the vertical fascial defect and inserted a 12 mm Jj-type port through this wound and secured it in place with sutures. I insufflated the abdomen to a pressure of 15 mmHg and then inserted a 5 mm 30-degree angled scope through this port. Next, under direct visualization, I placed a 5 mm port in the suprapubic midline and a second 5 mm port in the left lower quadrant. The patient was placed in Trendelenburg and planed toward the left to move viscera from the right lower quadrant. I then used wavy atraumatic graspers and swept the small bowel away from the right lower quadrant, and I immediately identified a phlegmon. Initially, the appendix was not visible, because it looked like a distended, inflammatory mass, but with a little bit of dissection, I was able to identify the base of the appendix coming off the cecum, where the tinea came down and joined the base of the appendix. The base of the appendix was relatively uninflamed. I made a window in the mesoappendix and then used a stapler and divided the base of the appendix flush with the cecum and not involving the ileocecal valve. I then used a combination of blunt dissection and a harmonic to separate the appendix away from this phlegmon and divide the mesoappendix with a harmonic scalpel as I went. Once the appendix was completely freed up, it was placed in a surgical specimen retrieval bag and removed from the abdomen through the umbilical port site. I then irrigated and dried the right lower quadrant, inspected the divided mesentery and the phlegmon, and there was a little oozing that I controlled with the harmonic scalpel, but after this, it was completely hemostatic. I removed all the irrigation fluid from the right lower quadrant, pelvis, and then up around the liver. Patient was then flattened and I pulled the viscera down into its natural position and covered everything with the omentum, removed the 5 mm ports and the camera, and then desufflated the abdomen, removed the umbilical port, and then placed the [id number] 0 Vicryl sutures through the vertical fascial defect at the umbilical port site and tied all three of these down with good reapproximation of the fascial edges and no remaining fascial defect. I then closed the skin at each port site with 4-0 Monocryl in a running subcuticular suture. The skin was cleaned and dried and Steri-Strips applied, followed by sterile surgical dressing. The patient was awakened and extubated in the operating room, then transported to the recovery room in stable condition, having tolerated the procedure without any apparent problems. JACOB
[2019-03-20] MEDS ORDERED: NS(*) 0.9% 1000 ML BAG 1,000 ML ONE (06:59)
--- NOTE | 2019-03-20 07:57 | General Surgery Progress Note ---
Subjective Progress Notes Subjective No complaints this morning. Not passing flatus. Feels "a little" bloated. No N/V. Feeling much better than before surgery. Physical Exam Vital Signs Date Time Temp Pulse Resp B/P (MAP) Pulse Ox O2 Delivery O2 Flow Rate FiO2 03/20/19 07:07 98.6 76 18 106/63 (77) 94 Room Air 03/20/19 03:06 0.5 Intake and Output 03/20/19 06:59 Intake Total 2200 ml Balance 2200 ml Intake Oral 50 ml IV Total 2150 ml # Voids 3 General Appearance: Alert, Awake, No Acute Distress, Afebrile GI: Other (Soft, appropriate postop TTP. Dressings are clean and dry.) Extremities: Warm, Perfused Result Diagram: 03/19/19 1519 03/19/19 151 Assessment and Plan Problems: (1) Acute appendicitis Status: Acute Assessment & Plan: 03/19/19: Admit, IV fluids, IV abx, NPO, to OR for lap appy. I have explained the plan, including surgery, with her in great detail. I have explained the possibility of a more advanced appendicitis with perforation and/or abscess, gangrene, phlegmon, etc. If her appendicitis is more advanced, surgery may take longer and her hospital stay may take longer as well. I may leave a surgical drain in place. If a phlegmon is present, I may not try to remove the appendix and treat her with abx with delayed appendectomy in 6 weeks. She seems to understand this discussion and her questions have been answered. Pt would like to proceed with this plan including surgery. 03/20/19: POD#1 s/p lap appy. Doing well. No fevers. Not passing flatus and she's a little bloated. Her appendicitis was with phlegmon and so mild postop ileus isn't unexpected. Inflammation was limited to RLQ and so doubt ileus will be severe or lengthy. Will let her eat but she's instructed to go slowly and stop eating if she develops increasing bloating or N/V. Will check on her later today and if she's doing well then will d/c to home but if she doesn't tolerate diet then will back off to clears and wait for flatus. She seems to understand and she seems agreeable with this plan. Condition STable. Time Spent: < 30 min Exam Sepsis Risk: No Definite Risk Problem Qualifiers (1) Acute appendicitis: Acute appendicitis type: unspecified acute appendicitis type Qualified Codes: K35.80 - Unspecified acute appendicitis MICHAEL SHARMA MD March 20, 2019 07:57
[2019-03-20] MEDS ORDERED: FAMOTIDINE 20 MG TAB ONE (08:41)
[2019-03-20] MEDS ORDERED: DOCUSATE SODIUM 100 MG CAP PO ONE (08:42)
[2019-03-20] MEDS: DOCUSATE SODIUM 100 MG CAP PO SCH (08:44)
[2019-03-20] MEDS: ACETAMINOPHEN 325 MG TAB PO PRN ×2 (08:44→14:26)
[2019-03-20] MEDS: FAMOTIDINE 20 MG TAB PO SCH (08:44)
[2019-03-20] MEDS: AMOX/CLAV 875 MG TAB PO SCH ×2 (09:57→17:22)
[2019-03-20] MEDS ORDERED: MULT1CAP59 PO (11:39)
[2019-03-20] MEDS ORDERED: [UNRECOGNIZED DRUG - CODE] PO (11:39)
[2019-03-20] MEDS ORDERED: DOCU-202 PO (17:20)
[2019-03-20] MEDS ORDERED: AMOX1TAB9 PO (17:20)
[2019-03-20] MEDS ORDERED: PER PO (17:20)
--- NOTE | 2019-03-20 17:47 | Short(Outpt) Discharge Summary ---
Discharge Summary Reason for Hosp/Final Diag: (1) Acute appendicitis Status: Acute Hospital Course & Plan: 03/19/19: Admit, IV fluids, IV abx, NPO, to OR for lap appy. I have explained the plan, including surgery, with her in great detail. I have explained the possibility of a more advanced appendicitis with perforation and/or abscess, gangrene, phlegmon, etc. If her appendicitis is more advanced, surgery may take longer and her hospital stay may take longer as well. I may leave a surgical drain in place. If a phlegmon is present, I may not try to remove the appendix and treat her with abx with delayed appendectomy in 6 weeks. She seems to understand this discussion and her questions have been answered. Pt would like to proceed with this plan including surgery. 03/20/19: POD#1 s/p lap appy. Doing well. No fevers. Not passing flatus and she's a little bloated. Her appendicitis was with phlegmon and so mild postop ileus isn't unexpected. Inflammation was limited to RLQ and so doubt ileus will be severe or lengthy. Will let her eat but she's instructed to go slowly and stop eating if she develops increasing bloating or N/V. Will check on her later today and if she's doing well then will d/c to home but if she doesn't tolerate diet then will back off to clears and wait for flatus. She seems to understand and she seems agreeable with this plan. 03/20/19 (evening): Doing well. Tolerating diet. No more bloating. No N/V. Now passing flatus. Will d/c to home. Departure Discharge to: Home, Self Care Discharge Instructions Home Meds Active Scripts Docusate Sodium (DOCUSATE SODIUM) 100 Mg Capsule, 1 CAP PO BID, #30 CAPSULE 0 Refills Prov:MICHAEL SHARMA MD 03/20/19 Oxycodone/Acetaminophen (OXYCODONE/ACETAMINOPHEN 5MG/325 MG) 5 Mg/325 Mg Tab, 1 TAB PO Q4H PRN for MODERATE PAIN, #10 TAB 0 Refills Prov:MICHAEL SHARMA MD 03/20/19 Amoxicillin/Potassium Clav (AMOX TR-K CLV 875-125 MG TAB) 1 Each Tablet, 1 TAB PO BIDBS, #14 TAB 0 Refills Prov:MICHAEL SHARMA MD 03/20/19 Reported Medications Lecithin (LECITHIN) 1,200 Mg Capsule, 1 CAP PO QDAY, CAPSULE for 03/20/19 Multivitamin (MULTIVITAMINS) 1 Each Capsule, 1 CAP PO QDAY, CAPSULE 03/20/19 Docosahexanoic Acid (DHA) 100 Mg Capsule, 1 CAP PO, CAPSULE for 08/13/18 Discontinued Reported Medications Vits W-Ca,Fe,Fa(<1MG) ( VITAMINS) 1 Each Tablet, 1 EACH PO DAILY, TAB 08/13/18 Famotidine (PEPCID) 20 Mg Tablet, 20 MG PO QDAY, #10 TAB 08/13/18 Discontinued Scripts Oxycodone Hcl/Acetaminophen (PERCOCET 5-325 MG TABLET) 1 Each Tablet, 1 EACH PO Q4-6H PRN for PAIN, #20 TAB 0 Refills TAKE 1 TABLET NEEDED FOR PAIN - NO CLOSER THAN EVERY 4-6 HOURS. Prov:MAGI MCCLELLAND 08/17/18 Ibuprofen (IBUPROFEN) 800 Mg Tablet, 1 TAB PO Q8H, #30 TAB 0 Refills Take with food every 8 hours. Prov:MAGI MCCLELLAND 08/17/18 Follow up Referrals: General Surgery - 04/02/19 @ Surgery, General with MICHAEL SHARMA MD You have a follow up appointment scheduled with Dr. Sharma on 04/02/19, at 9:00am. Diet: Regular Activity: As Tolerated Special Instructions: You may remove the white surgical dressings on 03/21/19, then you can shower. After showering, leave the incisions open to air but leave the steristrips in place until they fall off on their own. Do not immerse the incisions for 2 weeks. You may start taking ibuprofen (motrin) on 03/21/19. You can also use tylenol (acetaminophen) for pain control but don't take oxycodone/APAP within 6 hours of taking acetaminophen as they both contain acetaminophen to avoid causing damage to your liver. Problem Qualifiers (1) Acute appendicitis: Acute appendicitis type: unspecified acute appendicitis type Qualified Codes: K35.80 - Unspecified acute appendicitis MICHAEL SHARMA MD March 20, 2019 17:47
== END 2019-03-20 17:43 | disposition home or self-care (01) ==
LOC: ER 17:32 → OR 17:35 → MED 21:45
PROVIDERS: ADMIT Surgery; ATTEND Surgery
DX: K35.80 Unspecified acute appendicitis (principal)
CPT/HCPCS: 44970; 74177; 81001; 83690; 84703; 85025; 88304; 96374; 96375; 99284; G0378; J0131; J0330; J1100; J2405; J2543; J2704; J2795; J3010; J7030; Q9967; 82040; 82247; 82310; 82374; 82435; 82565; 82947; 84075; 84132; 84155; 84295; 84450; 84460; 84520